=== PATIENT | female | born 1945 | race Caucasian/White ===

== ENCOUNTER 2016-06-13 09:42 | Outpatient (CLI) | payer MEDICARE, MEDICAID ==
[2016-06-13 11:27] LABS: ALT (SGPT) 15 U/L (0-55); AST (SGOT) 14 U/L (5-34); Albumin 4.1 g/dL (3.4-4.8); Alkaline Phosphatase 56 U/L (40-150); Anion Gap 17 mmol/L (10-20); BUN (Urea Nitrogen) 18 mg/dL (9.8-20.1); Bilirubin, Total 0.4 mg/dL (0.2-1.2); Calc. Creatinine Clearance 0 mL/min (70-130); Calcium 9.7 mg/dL (7.8-10.44); Carbon Dioxide 22 mmol/L (23-31); Cardiac Risk 5.2 (Less than 4.5); Chloride 106 mmol/L (98-107); Cholesterol 243 mg/dL (< 200 Desired); Estimated GFR-MDRD 59; Globulin 2.9 g/dL (2.4-3.5); Glucose 113 mg/dL (83-110); HDL Cholesterol 47 mg/dL (>60 Neg Risk); LDL Cholesterol, Calculated 169 mg/dL; Potassium 4.1 mmol/L (3.5-5.1); Sodium 141 mmol/L (136-145); Triglycerides 136 mg/dL (Less than 150)
== END 2016-06-13 09:43 | disposition home or self-care (01) ==
LOC: MADLABBHPM 09:42
PROVIDERS: ATTEND Family Medicine
DX: E03.9 Hypothyroidism, unspecified (principal)
CPT/HCPCS: 80053; 80061; 84443

== ENCOUNTER 2016-08-15 10:43 | Outpatient (CLI) | payer MEDICARE, MEDICAID ==
[2016-08-15 14:22] LABS: Hemoglobin A1c 5.4 % (4.0-6.0)
== END 2016-08-15 10:44 ==
LOC: MADLABBHPM 10:43
PROVIDERS: ATTEND Family Medicine
DX: E78.5 Hyperlipidemia, unspecified (principal)
CPT/HCPCS: 36415; 83036; 84443

== ENCOUNTER 2017-01-03 09:52 | Outpatient (CLI) | payer MEDICAID, MEDICARE ==
[2017-01-03 10:53] LABS: ALT (SGPT) 18 U/L (8-55); AST (SGOT) 16 U/L (5-34); Albumin 4.1 g/dL (3.4-4.8); Alkaline Phosphatase 57 U/L (40-150); Anion Gap 16 mmol/L (10-20); BUN (Urea Nitrogen) 14 mg/dL (9.8-20.1); Bilirubin, Total 0.3 mg/dL (0.2-1.2); Calc. Creatinine Clearance 0 mL/min (70-130); Calcium 9.6 mg/dL (7.8-10.44); Carbon Dioxide 22 mmol/L (23-31); Cardiac Risk 5.6 (Less than 4.5); Chloride 107 mmol/L (98-107); Cholesterol 239 mg/dl (< 200 Desired); Estimated GFR-MDRD 64; Globulin 3.5 g/dL (2.4-3.5); Glucose 114 mg/dL (83-110); HDL Cholesterol 43 mg/dL (>60 Neg Risk); LDL Cholesterol, Calculated 156 mg/dL; Potassium 3.6 mmol/L (3.5-5.1); Protein, Total 7.6 g/dL (6.0-8.3); Sodium 141 mmol/L (136-145); Triglycerides 200 mg/dL (Less than 150)
== END 2017-01-03 09:53 | disposition home or self-care (01) ==
LOC: MADLABBHPM 09:52
PROVIDERS: ATTEND Family Medicine
DX: E78.5 Hyperlipidemia, unspecified (principal); E03.9 Hypothyroidism, unspecified; I10 Essential (primary) hypertension
CPT/HCPCS: 36415; 80053; 80061; 84443

== ENCOUNTER 2017-09-06 00:46 | Emergency (ER) | payer MEDICARE, OTHER ==
[2017-09-06] MEDS ORDERED: Benzonatate 100 MG CAP ONE (01:59)
[2017-09-06] MEDS ORDERED: cefTRIAXone\\ROCEPHIN 1 GM VIAL ONE (02:00)
--- NOTE | 2017-09-06 07:39 | RAD ---
SINGLE VIEW CHEST: Date: 09/06/17 COMPARISON: 06/22/15. HISTORY: Shortness of breath and left-sided rib pain. FINDINGS: Single view of the chest shows a normal sized cardiomediastinal silhouette. There is no evidence of c onsolidation, mass, or pleural effusion. The bones are unremarkable. IMPRESSION: No evidence of acute cardiopulmonary disease. POS: [facility]
== END 2017-09-06 02:30 | disposition home or self-care (01) ==
LOC: MADERS 00:46
DX: J18.9 Pneumonia, unspecified organism (principal); R09.1 Pleurisy; I10 Essential (primary) hypertension; M48.00 Spinal stenosis, site unspecified
CPT/HCPCS: 71045; 96372; J0696; J1040; J2001

== ENCOUNTER 2017-09-26 11:03 | Outpatient (CLI) | payer MEDICARE, OTHER ==
--- NOTE | 2017-09-26 13:12 | RAD ---
FRONTAL VIEW CHEST: Comparison: 09-06-17 Indication: Pneumonia. FINDINGS: There is interstitial prominence of the lungs without lobar consolidation or effusion. Cardiac silhou ette is stable. No pneumothorax. IMPRESSION: Interstitial prominence of each lung. This could relate to edema versus pneumonitis. Recommend clinic al correlation. As necessary, imaging follow up my be obtained. POS: [facility]
== END 2017-09-26 11:04 | disposition home or self-care (01) ==
LOC: MADLAB 11:03
PROVIDERS: ATTEND Family Medicine
DX: J18.9 Pneumonia, unspecified organism (principal)
CPT/HCPCS: 71046

== ENCOUNTER 2017-09-29 20:34 | Emergency (ER) | payer MEDICARE, OTHER ==
--- NOTE | 2017-09-29 21:32 | RAD ---
UPRIGHT PORTABLE CHEST ONE VIEW: 09/29/17 HISTORY: 71-year-old female with history of dyspnea and shortness of breath. COMPARISON: 09/26/17. FINDINGS: Less than optimal inspiration. Monitor leads overlie the chest. Heart size is within normal limits. N o confluent pneumonia, overt edema or pleural effusion. IMPRESSION: No acute intrathoracic disease. Stable from prior study. POS: [facility]
[2017-09-29 21:36] LABS: #Basophils 0.1 thou/uL (0.0-0.2); #Eosinphils 0.2 thou/uL (0.0-0.7); #Lymphocytes 1.5 thou/uL (1.20-3.40); #Monocytes 0.6 thou/uL (0.11-0.59); #Neutrophils 6.6 thou/uL (1.40-6.50); %Basophils 0.9 % (0.0-1.0); %Eosinophils 2.3 % (0.0-10.0); %Lymphocytes 16.9 % (21.0-51.0); %Monocytes 6.5 % (0.0-10.0); %Neutrophils 73.3 % (42.0-75.0); Hemoglobin 12.3 g/dL (12.0-16.0); Mean Corpuscular HGB CONC 32.4 g/dL (32.0-36.0); Mean Corpuscular Hemoglobin 24.2 pg (27.0-31.0); Mean Corpuscular Volume 74.6 fl (81.0-99.0); Mean Platelet Volume 6.6 fL (7.4-10.4); Platelet Count 282 thou/uL (130-400); RBC Distribution Width 13.6 % (11.5-14.5); Red Blood Cell (RBC) Count 5.08 mill/uL (4.20-5.40)
[2017-09-29 21:39] LABS: Anisocytosis MODERATE=16-30 cells (100X) (0-5/hpf); Microcytosis MODERATE=15-30 cells (100X) (0-5/hpf)
[2017-09-29 21:46] LABS: ALT (SGPT) 14 U/L (8-55); AST (SGOT) 15 U/L (5-34); Albumin 4.1 g/dL (3.4-4.8); Alkaline Phosphatase 71 U/L (40-150); Anion Gap 19 mmol/L (10-20); BUN (Urea Nitrogen) 23 mg/dL (9.8-20.1); Bilirubin, Total 0.5 mg/dL (0.2-1.2); CK (CPK) 77 U/L (29-168); Calc. Creatinine Clearance 0 mL/min (70-130); Calcium 9.3 mg/dL (7.8-10.44); Carbon Dioxide 18 mmol/L (23-31); Chloride 105 mmol/L (98-107); Estimated GFR-MDRD 56; Globulin 3.5 g/dL (2.4-3.5); Glucose 95 mg/dL (83-110); Potassium 3.6 mmol/L (3.5-5.1); Protein, Total 7.6 g/dL (6.0-8.3); Sodium 138 mmol/L (136-145)
[2017-09-29 21:52] LABS: CKMB 1.4 ng/mL (0-6.6); Troponin I Less than 0.010 ng/mL (< 0.028)
[2017-09-29] MEDS ORDERED: Ondansetron ODT 4 MG TAB ONE (22:31)
[2017-09-29] MEDS ORDERED: Morphine 4 MG/ML VIAL ONE (22:31)
[2017-09-29] MEDS ORDERED: methylPREDNISolone Sod Succ/PF 125 MG/2 ML VIAL ONE (22:48)
[2017-09-29] MEDS ORDERED: Dexamethasone 10 MG/ML VIAL ONE (22:48)
[2017-09-29] MEDS ORDERED: HYDROcodone/Acetaminophen 10/325 mg Tablet ONE (22:57)
== END 2017-09-29 23:04 | disposition home or self-care (01) ==
LOC: MADERS 20:34
DX: R07.81 Pleurodynia (principal); I10 Essential (primary) hypertension; Z79.899 Other long term (current) drug therapy; Z79.82 Long term (current) use of aspirin
CPT/HCPCS: 36415; 71045; 80053; 82550; 82553; 83605; 83880; 84484; 85025; 87040; 93005; 94760; 96374; 96375; J1100; J2270; J2930; Q0162

== ENCOUNTER 2018-02-01 20:40 | Emergency (ER) | payer MEDICARE, MEDICAID ==
[2018-02-01] MEDS ORDERED: Lorazepam 2 MG/ML VIAL ONE (21:02)
--- NOTE | 2018-02-01 21:18 | RAD ---
CHEST ONE VIEW: 02/01/18 HISTORY: Dyspnea. COMPARISON: 01/09/18. FINDINGS: Slight elongation of the aorta. Normal cardiac silhouette. Pulmonary vessels are within normal limits . Patchy interstitial opacities. No masses or consolidation. No pneumothorax or osseous abnormalities . IMPRESSION: Patchy interstitial opacities. Correlate for edema or infiltrate. POS: [facility]
[2018-02-01 21:23] LABS: #Basophils 0.1 thou/uL (0.0-0.2); #Eosinphils 0.2 thou/uL (0.0-0.7); #Lymphocytes 1.3 thou/uL (1.20-3.40); #Monocytes 0.5 thou/uL (0.11-0.59); #Neutrophils 5.4 thou/uL (1.40-6.50); %Basophils 1.5 % (0.0-1.0); %Eosinophils 3.3 % (0.0-10.0); %Lymphocytes 17.4 % (21.0-51.0); %Monocytes 6.9 % (0.0-10.0); Anisocytosis SLIGHT = 6-15 cells (100X) (0-5/hpf); MDiff Complete? YES; Mean Corpuscular HGB CONC 31.9 g/dL (32.0-36.0); Mean Corpuscular Hemoglobin 24.8 pg (27.0-31.0); Mean Corpuscular Volume 77.6 fL (78.0-98.0); Mean Platelet Volume 7.5 fL (7.4-10.4); Microcytosis SLIGHT = 6-15 cells (100X) (0-5/hpf); PLT Morphology Comment Appears Adequate; Platelet Count 275 thou/uL (130-400); Poikilocytosis SLIGHT = 6-15 cells (100X) (0-5/hpf); RBC Distribution Width 13.7 % (11.5-14.5); RBC Morphology Abnormal; Red Blood Cell (RBC) Count 4.86 mill/uL (4.20-5.40); White Blood Cell (WBC) Count 7.6 thou/uL (4.8-10.8)
[2018-02-01 21:28] LABS: ALT (SGPT) 17 U/L (8-55); AST (SGOT) 19 U/L (5-34); Albumin 4.3 g/dL (3.4-4.8); Alkaline Phosphatase 63 U/L (40-150); Anion Gap 15 mmol/L (10-20); BUN (Urea Nitrogen) 18 mg/dL (9.8-20.1); Bilirubin, Total 0.2 mg/dL (0.2-1.2); Calc. Creatinine Clearance 0 mL/min (70-130); Calcium 9.3 mg/dL (7.8-10.44); Carbon Dioxide 20 mmol/L (23-31); Chloride 108 mmol/L (98-107); Estimated GFR-MDRD 62; Globulin 2.8 g/dL (2.4-3.5); Glucose 111 mg/dL (83-110); Potassium 3.9 mmol/L (3.5-5.1); Protein, Total 7.1 g/dL (6.0-8.3); Sodium 139 mmol/L (136-145)
== END 2018-02-01 22:45 | disposition short-term general hospital (02) ==
LOC: MADERS 20:40
DX: I21.4 Non-ST elevation (NSTEMI) myocardial infarction (principal); E03.9 Hypothyroidism, unspecified; Z86.73 Personal history of transient ischemic attack (TIA), and cerebral infarction without residual deficits; F41.9 Anxiety disorder, unspecified; F32.9 Major depressive disorder, single episode, unspecified; Z87.891 Personal history of nicotine dependence; Z79.82 Long term (current) use of aspirin; Z79.899 Other long term (current) drug therapy
CPT/HCPCS: 36415; 71045; 80053; 83880; 84484; 85025; 93005; 96374; J2060

== ENCOUNTER 2018-04-25 11:16 | Outpatient (CLI) | payer MEDICARE, MEDICAID ==
[2018-04-25 11:32] LABS: Anion Gap 14 mmol/L (10-20); BUN (Urea Nitrogen) 13 mg/dL (9.8-20.1); Calc. Creatinine Clearance 0 mL/min (70-130); Calcium 9.2 mg/dL (7.8-10.44); Carbon Dioxide 22 mmol/L (23-31); Chloride 107 mmol/L (98-107); Estimated GFR-MDRD 67; Glucose 117 mg/dL (83-110); Potassium 4.1 mmol/L (3.5-5.1); Sodium 139 mmol/L (136-145)
[2018-04-25 12:16] LABS: #Basophils 0.1 thou/uL (0.0-0.2); #Eosinphils 0.3 thou/uL (0.0-0.7); #Lymphocytes 1.2 thou/uL (1.20-3.40); #Monocytes 0.6 thou/uL (0.11-0.59); #Neutrophils 5.4 thou/uL (1.40-6.50); %Basophils 1.2 % (0.0-1.0); %Eosinophils 4.5 % (0.0-10.0); %Lymphocytes 15.2 % (21.0-51.0); %Monocytes 7.5 % (0.0-10.0); %Neutrophils 71.6 % (42.0-75.0); Hemoglobin 11.7 g/dL (12.0-16.0); Mean Corpuscular HGB CONC 30.5 g/dL (32.0-36.0); Mean Corpuscular Hemoglobin 24.5 pg (27.0-31.0); Mean Corpuscular Volume 80.1 fL (78.0-98.0); Mean Platelet Volume 6.8 fL (7.4-10.4); Platelet Count 301 thou/uL (130-400); RBC Distribution Width 14.4 % (11.5-14.5); Red Blood Cell (RBC) Count 4.78 mill/uL (4.20-5.40); White Blood Cell (WBC) Count 7.6 thou/uL (4.8-10.8)
[2018-04-25 12:17] LABS: MDiff Complete? YES; Polychromasia SLIGHT = 2-3 cells (100X) (0-2/hpf)
== END 2018-04-25 11:17 | disposition home or self-care (01) ==
LOC: MADLAB 11:16
PROVIDERS: ATTEND Thoracic Surgery (Cardiothoracic Vascular Surgery)
DX: I25.10 Atherosclerotic heart disease of native coronary artery without angina pectoris (principal)
CPT/HCPCS: 36415; 80048; 85025

== ENCOUNTER 2018-05-03 17:31 | Inpatient (IN) | payer MEDICARE, MEDICAID ==
[2018-05-03 17:44] VITALS: BMI 37.0
[2018-05-03] MEDS ORDERED: Zolpidem Tartrate 5 MG TAB PO PRN (18:13)
[2018-05-03] MEDS ORDERED: Loratadine 10 MG TAB PO PRN (18:13)
[2018-05-03] MEDS ORDERED: Senokot S 8.6-50 MG TAB PO PRN (18:18)
[2018-05-03] MEDS: HYDROcodone/Acetaminophen 5/325 mg Tablet PO PRN (19:21)
[2018-05-03] MEDS ORDERED: traZODone HCl 50 MG TAB PO SCH (21:00)
[2018-05-04] MEDS: HYDROcodone/Acetaminophen 5/325 mg Tablet PO PRN ×3 (00:52→21:07)
[2018-05-04] MEDS: Levothyroxine Sodium 75 MCG TAB PO SCH (05:41)
[2018-05-04] MEDS ORDERED: Lantiseptic Ointment 130 GM JAR TOP PRN (06:12)
[2018-05-04] MEDS: Carvedilol 6.25 MG TAB PO SCH ×2 (07:40→16:53)
[2018-05-04] MEDS: Potassium Chloride 20 MEQ TAB PO SCH ×2 (07:40→16:53)
[2018-05-04] MEDS: Aspirin 325 mg Enteric Coated Tablet PO SCH (08:11)
[2018-05-04] MEDS: Amiodarone 200 MG TAB PO SCH (08:11)
[2018-05-04] MEDS: Polyethylene Glycol 3350 17 GM Packet PO SCH (08:11)
[2018-05-04] MEDS: Furosemide 40 MG TAB PO SCH ×2 (08:11→15:17)
--- NOTE | 2018-05-04 13:00 | HP ---
PRIMARY CARE PHYSICIAN: Charlotte Saeed MD. ATTENDING PHYSICIAN: Charlotte Saeed MD. CARDIOVASCULAR PHYSICIAN: Bryan Josue MD. CLIENT SERVICES ANALYST: Troy Lo MD. Andrea Cortez MD. REASON FOR ADMISSION: Skilled rehab in [facility] posthospitalization. HISTORY OF PRESENT ILLNESS AND HOSPITAL COURSE: Ms. Quesada is a 72-year-old female with history of hypertension, dyslipidemia, and history of severe aortic stenosis. She underwent a successful aortic valve replacement by Dr. Bryan Josue on 04/26/2018, at [facility]. She was admitted on 04/26/2018, by Dr. Bryan Josue for elective procedure. The patient has done well postoperatively. Postoperative course complications include a brisk bout of SVT, which was controlled with amiodarone drip. She also had an acute severe anemia , requiring blood transfusions. The patient was then subsequently changed to oral amiodarone prior to discharge and did well.Her most recent hemoglobin was 10.4 on 04/30/18. At the time of discharge, she is ambulatory, tolerating regular diet, having good bowel movement and bladder function. Her incisions are reported to be clean and dry without evidence of infection. . The patient reports that she remains generally weak and deconditioned secondary to recent surgical procedure. She is deemed to benefit from skilled rehab prior to going back to the home environment, thus transferred to [facility]. Upon admission, the patient reports that she feels fine. She reports having intermittent anterior chest wall pain, which is triggered by certain movements. She has had one episode again today after she got out of the ambulance and transferred to her room. She also reports that she is on stool softener to avoid constipation as she easily gets bloated and constipated and does not want to eort extra effort to strain heavily.The patient reports that she uses Ambien while in the hospital for sleeping. She also mentions that she does not want to discontinue her Celexa at all as it helps her overall moods and anxiety. Upon review of her records, we found out that the Celexa was not given at all while in the hospital. Other medications changes aside from the amiodarone, include Coreg, as an alternative for her home med of Atenolol. Aspirin was increased from 81 mg home medication to 325 mg p.o. daily. Amlodipine was likewise withheld secondary to episodes of bradycardia post surgery. At this point,the patient's heart rate and blood pressure are well controlled. MEDICATIONS: 1. Levothyroxine 75 mcg q.a.m. 2. Amiodarone 200 mg p.o. daily for 2 months. 3. Aspirin 325 mg p.o. daily. 4. Coreg 6.25 mg p.o. b.i.d. 5. Lasix 40 mg b.i.d. 6. Potassium 20 mEq p.o. daily. 7. [place] 5/325 mg 1 to 2 tablets q.6 hours p.r.n. PAST MEDICAL HISTORY: Hypertension; dyslipidemia; anxiety; depression; aortic stenosis, status post AVR and bypass surgery; chronic back pain; chronic visual abnormality secondary to macular degeneration; hypothyroidism; history of prior TIA in 2017; and peripheral neuropathy. Echocardiogram on 02/03/2018, ejection fraction 60% to 65%. Mildly dilated left atrium. Left ventricular size is normal. Mild concentric left ventricular hypertrophy. Impaired relaxation compatible with diastolic dysfunction. Aortic valve leaflets are thickened. [id number] aortic stenosis and mild tricuspid regurgitation. PAST SURGICAL HISTORY: Hysterectomy, tonsillectomy, and bilateral hip replacement. FAMILY HISTORY: Mother of Parkinson's. Father was killed in [place] Explosion when she was just a small child. She has 2 brothers with heart disease; one has valvular, the other one has coronary artery disease. SOCIAL HISTORY: The patient is . She has 2 adult sons; one has problem with drugs and alcohol and has been in alf numerous times. She denies smoking, drinking, or abuse of illicit drug use. She is DNR and states that brother Keith and her son Waqas would be her surrogate decision makers. ALLERGIES: INCLUDE: 1. XANAX. 2. CYMBALTA. 3. GABAPENTIN. 4. PAXIL. 5. LYRICA. 6. ZOLOFT. REVIEW OF SYSTEMS: GENERAL: Denies fever, chills, or loss of appetite. Denies fatigue and general weakness. HEENT: Reports chronic burry/abnormal vision. No acute loss of vision. No acute hearing changes. No cold symptoms. RESPIRATORY: No cough, shortness of breath, pain with breathing, sputum production, or blood in sputum. CARDIAC: Denies chest heaviness, pain with breathing, orthopnea, dyspnea on exertion, or cyanosis. GI: No nausea, vomiting, abdominal pain, or diarrhea, no rectal bleeding, black or tarry stools, incontinence. Reports intermittent constipation. . GENITOURINARY: No dysuria, hematuria, frequency, or urgency. Continent to bladder. MUSCULOSKELETAL: Reports chronic low back /hip pain with radiculopathy and unsteady gait. PSYCHIATRIC: Reports depressive symptoms, anxiety, and insomnia. Denies hallucinations. Denies suicidal thoughts, ideations, or plans. SKIN: Reports some redness on the buttocks. Otherwise, no other lesions, ulcers, or pruritis. PHYSICAL EXAMINATION: VITAL SIGNS: Blood pressure 131/63, temperature 98.6, pulse rate 79, respirations 20, O2 saturations 97%. Height 5 feet 2 inches. Weight 202 pounds 11 ounces. GENERAL: The patient is awake, alert, and oriented x3. Generally weak looking, elderly, comfortable on exam, not in acute distress. HEENT: Normocephalic and atraumatic. PERRL. Intact EOM. Anicteric sclerae. Oral mucosa is moist. NECK: Supple. No lymphadenopathy. No JVD. CHEST: Normal excursion. Clear to auscultation bilaterally. CARDIAC: RRR. Normal S1 and S2. ABDOMEN: Soft, obese, and nondistended. Normoactive bowel sounds. Nontender. EXTREMITIES: Trace bilateral bipedal nonpitting edema. Negative Homans. Dorsalis pedis 2+ bilaterally. PSYCHIATRIC: Appears calm with appropriate demeanor and affect. SKIN: Intact erythematous sacrum, blanchable. Postoperative site on the anterior chest is dry and intact. Wound edges are well coapted. Mild tenderness to touch ; No dehiscence. No exudates. No drainage. No surrounding erythema. No swelling. LABORATORY DATA: Latest lab in [facility], 04/30/2018: WBC 9.2, hemoglobin 10.4, hematocrit 31, platelets 193. Sodium 135, potassium 3.2, chloride 93, BUN 21, creatinine 0.61, eGFR 61, calcium 9.1. TSH 2.7. Albumin 3.4. Magnesium 2.1. LFTs within normal limits. PT 17.2, INR 1.4. ASSESSMENT AND PLAN: 1. Deconditioning. 2. Severe aortic stenosis/coronary artery disease, status post aortic valve replacement 3. CAD, s/p coronary artery bypass grafting x4. 4. Acute severe blood loss anemia, requiring blood transfusion. 5. Hypokalemia, mild. Likely diuretic-induced. 6. History of arrhythmia, status post supraventricular tachycardia and bradycardia, now rate controlled. 7.Diastolic dysfunction with ejection fraction of 60% to 65% as of January 2018, echocardiogram in [facility] 8. Depression and anxiety. 9. Insomnia. 10. Hypothyroidism. 11. Chronic low back pain. 12. General weakness. 13. Unsteady gait The patient is admitted to [facility] for purposes of skilled rehab post hospitalization in order to to gain modified independence with her gait and mobility and modified independence with self-care and activities of daily living skills prior to returning home. The patient's pain will be managed with p.r.n. narcotic as well as constipation management. We will continue all current medications as per list. We have a lengthy discussion with regard to her anxiety/antidepressive and insomnia medications. It was explained to the patient that her Celexa was for some reason withheld during her recent hospitalization, so she has not been using the SSRI for over a week. Discussed the drug interactions between the Celexa and her amiodarone, causing increased risks to her heart. Patient reports given her current heart condition, would rather not received the medication. Discussed treatment options. Given the fact that she also has issues with insomnia, and the limitation of short term use of ambien, patient may benefit from Trazodone to cover for both. The patient agreed to a trial of trazodone. We will order. We will continue to monitor the patient for any medical comorbidities that may interfere with rehab progress. We will continue to monitor her blood pressure. We will consider re-initiating her calcium channel freddie (Norvasc 10 mg p.o. q.a.m.) from home medications if Blood pressure in not at goal as long as the heart rate is controlled. ESTIMATED LENGTH OF STAY: 2 to 3 weeks. CODE STATUS: The patient reports do not resuscitate, which is consistent with other previous hospitalization's resuscitation status. This was discussed in the presence of her 2 surrogate decision makers, her son Waqas and her brother Keith Simon. Family representatives were both into agreement to the patient's wishes. We discussed the plan of care with the patient in the presence of the family today. There were all encouraged to ask questions, and their questions were all answered to their satisfaction. We will continue to monitor the patient's progress and to coordinate with the family for any changes in her care or status. DISPOSITION: Home and possible outpatient cardiac rehab at [facility] per [facility] recommendations. Job ID: [id number] MTDD
--- NOTE | 2018-05-04 15:04 | HP ---
Of note, I am re-dictating this admitting history as Medical Records could not find my previous dictation for this patient. PRIMARY CARE PHYSICIAN: Dr. Saeed. ATTENDING PHYSICIAN: Dr. Saeed. CARDIOVASCULAR PHYSICIAN: Dr. Josue. CARDIOLOGISTS: Dr. Cortez/Dr. Lo. REASON FOR ADMISSION: Skilled rehab in [facility] after recent hospitalization for cardiac procedure/surgery. HISTORY OF PRESENT ILLNESS AND HOSPITAL COURSE: Ms. Quesada is a 72-year-old female with significant history of hypertension, dyslipidemia, CAD, and diastolic dysfunction. She also has a history of severe aortic stenosis and she successfully underwent an elective procedure for aortic valve replacement, was done by Dr. Bryan Josue on 04/26/2018. She also had an underlying 3-vessel coronary artery disease and underwent bypass surgery x4. Post-surgical complications include acute blood loss anemia, for which the patient received 2 units of packed RBC. Her baseline hemoglobin of 8.3 with a hematocrit of 25.8 on 04/26/2018, went up to 10/30.4 accordingly. Later on, on 04/29/2018, the patient's hemoglobin went down to 7.4 with a hematocrit of 22.5, thus transfused. Post-transfusion, hemoglobin was 10.4 and hematocrit of 31 on 04/30/2018. The patient also had a brisk bout of SVT and bradycardia, which was controlled with amiodarone drip. The patient was discharged on amiodarone per RN. Otherwise, the remainder of her hospital stay was reported to be unremarkable. At the time of discharge, we were told that she was ambulatory, tolerating regular diet, and having good bowel and bladder function. Her incision sites are clean and dry without evidence of infection. The patient was sent with oral narcotic for pain management. Her beta-freddie was changed from atenolol to Coreg, and her home medication of Norvasc was withheld secondary to bradycardia. There was a note that Norvasc may possibly be reinitiated by PCP, if deemed necessary. The patient remains generally weak and deconditioned secondary to recent heart procedure. Thus, she was transferred to [facility] for strengthening exercises prior to going back to the home environment. The patient is also a good candidate for outpatient cardiac rehab per [facility] notes. On admission, the patient reports that she is doing fine except that she remains generally weak. She also reports intermittent anterior chest wall pain that is notable with movements. Currently, complaining of anterior right chest pain that was noted upon getting up or getting out of the EMS. The patient also reported apparent concerns of her home medications including the Celexa and Ambien. She has a history of chronic depressive symptoms/anxiety and she is allergic to several psych medications except for the Celexa that works best for her. She states that she really is wanting to continue the medicine and does not want to miss it. Upon review of her medications from the [facility] from [facility], it was found out that the patient's Celexa was withheld during her recent hospitalization for unknown reason. She was also started on low-dose of Ambien for sleeping issues. The patient reports that Ambien really works for her and is wanting to continue. The patient also reports that she also needs stool softeners as she is having a hard time with her bowel movements lately and is unable to strain much due to her recent procedure. No other issues at this point. PAST MEDICAL HISTORY: Hypertension, dyslipidemia, depression, anxiety, chronic low back pain/hip pain, peripheral neuropathy, macular degeneration, hypothyroidism, unsteady gait. Latest echocardiogram on 02/04/2016, EF of 60% to 65%. Mildly dilated left atrium. Left ventricular size is normal. Mild concentric left ventricular hypertrophy. Impaired relaxation compatible with diastolic dysfunction. Aortic valve leaflets are thickened. [id number] aortic stenosis is present. Mild tricuspid regurgitation. PAST SURGICAL HISTORY: Hysterectomy, tonsillectomy, and bilateral hip replacements. She reports something went wrong with the right hip procedure and she has had chronic problems related to that. FAMILY HISTORY: Mother of Parkinson's. Father was killed in [place] explosion when she was just a small child. She has 2 brothers with heart disease; one has valvular, the other one has coronary artery disease. ALLERGIES: 1. XANAX. 2. CYMBALTA. 3. GABAPENTIN. 4. PAXIL. 5. LYRICA. 6. ZOLOFT. SOCIAL HISTORY: The patient is . She has 2 adult sons; one has problem with drugs and alcohol and has been in custodial numerous times. She denies smoking, drinking, or illicit drug use. She is DNR and states that brother, Keith and her son, Waqas, would be her surrogate decision makers. CURRENT MEDICATIONS: 1. Levothyroxine 75 mcg p.o. q.a.m. 2. Amiodarone 200 mg p.o. daily for 2 months. 3. Aspirin 325 mg p.o. daily. 4. Coreg 6.25 mg p.o. b.i.d. 5. Lasix 40 mg b.i.d. 6. Potassium 20 mEq p.o. daily. 7. [place] 5/325 mg 1 to 2 q.6 hours p.r.n. for pain. 8. Pending Norvasc 10 mg q.a.m. 9. Celexa 40 mg p.o. q.a.m., on hold. REVIEW OF SYSTEMS: GENERAL: Denies fever, chills, or loss of appetite. Reports general weakness and fatigue. No significant weight loss. HEENT: Reports long-term issues with blurry vision. No acute visual changes nor hearing changes. No cold symptoms. RESPIRATORY: No cough, sputum production, bloody sputum, pain with breathing, shortness of breath, or wheezing. CARDIAC: No chest heaviness, orthopnea, dyspnea on exertion, or cyanosis. GI: No nausea, vomiting, abdominal pain, or diarrhea. Reports constipation. No rectal bleeding. GENITOURINARY: No dysuria, hematuria, frequency, urgency, or incontinence. MUSCULOSKELETAL: Reports chronic joint pain, hip pain, back pain, and stiffness of joints. No joint swelling or erythema. SKIN: No rashes. No lesions or any nonhealing ulcers. NEUROLOGIC: No new motor or sensory losses. No syncopal episodes. No tremors, tics, or seizure activities. PSYCHIATRIC: Reports depressive symptoms, anxiety, and insomnia. Denies hallucinations, suicidal thoughts, ideations, or plans. PHYSICAL EXAMINATION: VITAL SIGNS: Blood pressure 131/63, temperature 98.6, pulse rate 79, respirations 20, O2 saturations 97% on room air. Weight 202 pounds and 11 ounces. Height 5 feet 2 inches. GENERAL: The patient is awake, alert, and oriented x3. Generally weak looking, fatigue, elderly, comfortable on exam, not in acute distress. Family is at bedside during examination. HEENT: Normocephalic and atraumatic. PERRLA. Intact EOM. Anicteric sclerae. Oral mucosa is moist. NECK: Supple. No LAD/JVD. CHEST: Normal excursion and nonlabored breathing. LUNGS: Clear to auscultation bilaterally. No rales, no wheezes, no crackles. CARDIAC: RRR. Normal S1 and S2. ABDOMEN: Obese, soft. Normoactive bowel sounds. Nondistended and nontender. No rebound. No guarding. Negative CVA tenderness bilaterally. EXTREMITIES: Trace nonpitting bilateral leg bipedal edema. No cyanosis. Dorsalis pedis 2+ bilaterally. NEUROLOGIC: Nonfocal. DTRs 2+. Alert and oriented. Gait, unsteady. PSYCHIATRIC: Appears anxious with her medications. Otherwise, appropriate. Socially interactive. ASSESSMENT AND PLAN: 1. Deconditioning. 2. General weakness. 3. Severe aortic stenosis, status post aortic valve replacement on 04/26/2018. 4. Coronary artery disease, status post coronary artery bypass grafting x4 on 04/26/2018. 5. Acute blood loss anemia, severe, requiring blood transfusions, asymptomatic. 6. Hypertension, dyslipidemia, hypothyroidism, depression, anxiety, insomnia, unsteady gait. The patient is admitted to [facility] for purposes of skilled rehab. PT consult to gain modified independence with mobility and household ambulation with a rolling walker, weightbearing as tolerated. OT consult to gain modified independence with self-care, ADL skills. The patient's pain will be managed with p.r.n. narcotic as well as constipation management with stool softeners. We will continue all current medications except for the home medications of Norvasc and Celexa. Lengthy discussion with the patient in the presence of her family that Celexa was withheld during her recent hospitalization likely secondary to drug interactions with amiodarone. Treatment options were discussed at length. The patient agrees to a trial of trazodone that will cover both depression, anxiety, and insomnia. We will continue low-dose Ambien as needed. She was also reminded that long-term use of Ambien is not a good recommendation, so we may taper off during her rehab stay. The patient concurs with above and will notify us, if she developed intolerance to the medications. DVT prophylaxis with SCD. ESTIMATED LENGTH OF STAY: 2 to 3 weeks. CODE STATUS: The patient reports do not attempt resuscitation. DNR status was verbalized and discussed in the presence of her two surrogate decision makers, son Waqas and Keith Simon, the patient's brother, who were all into agreement with the patient's wishes. DISPOSITION: Home. Further recommendations depending on the hospital course. Job ID: [id number]
[2018-05-05] MEDS: HYDROcodone/Acetaminophen 5/325 mg Tablet PO PRN ×4 (05:44→20:44)
[2018-05-05] MEDS: Levothyroxine Sodium 75 MCG TAB PO SCH (05:44)
[2018-05-05] MEDS: Polyethylene Glycol 3350 17 GM Packet PO SCH (08:26)
[2018-05-05] MEDS: Carvedilol 6.25 MG TAB PO SCH ×2 (08:26→17:23)
[2018-05-05] MEDS: Furosemide 40 MG TAB PO SCH ×2 (08:27→14:35)
[2018-05-05] MEDS: Amiodarone 200 MG TAB PO SCH (08:27)
[2018-05-05] MEDS: Aspirin 325 mg Enteric Coated Tablet PO SCH (08:27)
[2018-05-05] MEDS: Potassium Chloride 10 MEQ TAB PO SCH ×2 (08:27→17:23)
[2018-05-06] MEDS: HYDROcodone/Acetaminophen 5/325 mg Tablet PO PRN ×3 (02:37→20:21)
[2018-05-06] MEDS: Levothyroxine Sodium 75 MCG TAB PO SCH (05:39)
[2018-05-06] MEDS ORDERED: Milk Of Magnesia 30 ML UDCUP PO PRN (08:32)
[2018-05-06] MEDS: Potassium Chloride 10 MEQ TAB PO SCH ×2 (08:59→16:51)
[2018-05-06] MEDS: Aspirin 325 mg Enteric Coated Tablet PO SCH (08:59)
[2018-05-06] MEDS: Furosemide 40 MG TAB PO SCH ×2 (08:59→14:32)
[2018-05-06] MEDS: Carvedilol 6.25 MG TAB PO SCH ×2 (08:59→16:52)
[2018-05-06] MEDS: Amiodarone 200 MG TAB PO SCH (08:59)
[2018-05-06] MEDS: Polyethylene Glycol 3350 17 GM Packet PO SCH (13:02)
[2018-05-06] MEDS ORDERED: Bisacodyl 10 MG SUPP PR SCH (18:00)
[2018-05-07] MEDS: Levothyroxine Sodium 75 MCG TAB PO SCH (05:43)
[2018-05-07] MEDS: Potassium Chloride 10 MEQ TAB PO SCH ×2 (07:54→17:08)
[2018-05-07] MEDS: Carvedilol 6.25 MG TAB PO SCH ×2 (07:54→17:08)
[2018-05-07] MEDS: Polyethylene Glycol 3350 17 GM Packet PO SCH (08:07)
[2018-05-07] MEDS: Furosemide 40 MG TAB PO SCH ×2 (08:08→14:33)
[2018-05-07] MEDS: Amiodarone 200 MG TAB PO SCH (08:08)
[2018-05-07] MEDS: Aspirin 325 mg Enteric Coated Tablet PO SCH (08:08)
[2018-05-07] MEDS: HYDROcodone/Acetaminophen 5/325 mg Tablet PO PRN ×3 (11:46→17:08)
[2018-05-08] MEDS: Levothyroxine Sodium 75 MCG TAB PO SCH (05:55)
[2018-05-08] MEDS: Carvedilol 6.25 MG TAB PO SCH ×2 (07:34→17:13)
[2018-05-08] MEDS: Potassium Chloride 10 MEQ TAB PO SCH ×2 (07:34→17:13)
[2018-05-08] MEDS: HYDROcodone/Acetaminophen 5/325 mg Tablet PO PRN ×3 (07:40→20:59)
[2018-05-08] MEDS: Polyethylene Glycol 3350 17 GM Packet PO SCH (08:20)
[2018-05-08] MEDS: Amiodarone 200 MG TAB PO SCH (08:20)
[2018-05-08] MEDS: Aspirin 325 mg Enteric Coated Tablet PO SCH (08:20)
[2018-05-08] MEDS: Furosemide 40 MG TAB PO SCH ×2 (08:20→14:51)
[2018-05-09] MEDS ORDERED: Nitroglycerin 0.4 MG TAB (25 Tab Bottle) ONE (02:03)
[2018-05-09] MEDS ORDERED: Nitroglycerin 0.4 MG TAB (25 Tab Bottle) SL PRN (02:05)
[2018-05-09 02:35] LABS: #Basophils 0.2 thou/uL (0.0-0.2); #Eosinphils 0.5 thou/uL (0.0-0.7); #Lymphocytes 1.7 thou/uL (1.20-3.40); #Monocytes 0.8 thou/uL (0.11-0.59); #Neutrophils 8.4 thou/uL (1.40-6.50); %Basophils 1.5 % (0.0-1.0); %Lymphocytes 14.8 % (21.0-51.0); %Monocytes 6.7 % (0.0-10.0); %Neutrophils 72.9 % (42.0-75.0); Hemoglobin 10.7 g/dL (12.0-16.0); Mean Corpuscular HGB CONC 31.9 g/dL (32.0-36.0); Mean Corpuscular Hemoglobin 26.2 pg (27.0-31.0); Mean Corpuscular Volume 82.2 fL (78.0-98.0); Mean Platelet Volume 5.9 fL (7.4-10.4); Platelet Count 358 thou/uL (130-400); RBC Distribution Width 15.1 % (11.5-14.5); Red Blood Cell (RBC) Count 4.09 mill/uL (4.20-5.40); White Blood Cell (WBC) Count 11.6 thou/uL (4.8-10.8)
[2018-05-09 02:47] LABS: ALT (SGPT) 10 U/L (8-55); AST (SGOT) 12 U/L (5-34); Albumin 3.7 g/dL (3.4-4.8); Alkaline Phosphatase 75 U/L (40-150); Anion Gap 17 mmol/L (10-20); BUN (Urea Nitrogen) 26 mg/dL (9.8-20.1); Bilirubin, Total 0.3 mg/dL (0.2-1.2); Calc. Creatinine Clearance 60 mL/min (70-130); Calcium 8.9 mg/dL (7.8-10.44); Carbon Dioxide 25 mmol/L (23-31); Chloride 101 mmol/L (98-107); Estimated GFR-MDRD 45; Globulin 2.6 g/dL (2.4-3.5); Glucose 107 mg/dL (83-110); Potassium 4.2 mmol/L (3.5-5.1); Protein, Total 6.3 g/dL (6.0-8.3); Sodium 139 mmol/L (136-145)
[2018-05-09 03:20] LABS: CKMB 1.4 ng/mL (0-6.6)
[2018-05-09 03:54] VITALS: BP 105/51; TEMP 97.8
--- NOTE | 2018-05-10 08:26 | DIS ---
DATE OF ADMISSION: 05/03/2018 DATE OF DISCHARGE: 05/09/2018 ATTENDING/PRIMARY CARE PHYSICIAN: Dr. Saeed. CUTTER GRIND TOOL TECHNICIAN: Dr. Cortez. CARDIOVASCULAR PHYSICIAN: Dr. Bryan Josue. REASON FOR ADMISSION: Skilled rehab in [facility], status post cardiac procedure. ADMITTING DIAGNOSES: 1. Deconditioning. 2. Severe aortic stenosis, status post aortic valve replacement on 04/26/2018. 3. Coronary artery disease, status post coronary artery bypass grafting x4 on . 4. Acute severe blood loss anemia requiring blood transfusion, stable. 5. Hypokalemia, mild, diuretic induced, stable. 6. History of arrhythmia, status post supraventricular tachycardia/bradycardia postoperatively. 7. Diastolic dysfunction with ejection fraction of 60% to 65% on echo in January 2018 at [facility]. 8. Depression, anxiety, insomnia, hypothyroidism, chronic low back pain, general weakness, and unsteady gait. FINAL DIAGNOSES: 1. Acute chest pain. 2. Paroxysmal atrial fibrillation. 3. Coronary artery disease, status post coronary artery bypass grafting x4 on . 4. Severe aortic stenosis, status post aortic valve replacement on 04/26/2018. 5. Acute severe blood loss anemia, requiring blood transfusion. 6. Diastolic dysfunction with ejection fraction of 60% to 65% as of January 2018 echocardiogram at [facility]. 7. Acute severe blood loss anemia requiring blood transfusion, stable. 8. Hypokalemia, mild, stable. 9. Depression, anxiety, insomnia, hypothyroidism, chronic low back pain, general weakness, and unsteady gait. MEDICATIONS: 1. Nitroglycerin 0.5 sublingual p.r.n. for chest pain. 2. Amiodarone 200 mg p.o. daily. 3. Aspirin 325 mg p.o. daily. 4. Coreg 6.25 mg p.o. b.i.d. 5. Furosemide 40 mg b.i.d. 6. Hydrocodone 5/325 mg p.o. 1 to 2 q.4 hours p.r.n. for pain. 7. Lantiseptic p.r.n. 8. Levothyroxine 75 mcg p.o. q.a.m. 9. Loratadine 10 mg p.o. daily p.r.n. 10. Magnesium hydroxide 30 mL p.o. q.12 hours p.r.n. 11. Polyethylene glycol 17 g p.o. daily. 12. Potassium chloride 20 mEq p.o. b.i.d. 13. Sennoside-docusate 1 tab p.o. b.i.d. p.r.n. 14. Zolpidem tartrate 5 mg p.o. at bedtime p.r.n. CODE STATUS: DNAR. DISPOSITION: [facility], direct admit to IMCU/EMU under Dr. Cota as the admitting physician. CONDITION ON DISCHARGE: Hemodynamically stable, but guarded. HISTORY OF PRESENT ILLNESS AND HOSPITAL COURSE: Ms. Simon is a 72-year-old female, who had a recent elective procedure for severe aortic stenosis valve replacement, and CABG x4 on 04/26/2018 that was done by Dr[address] Bryan Josue.Postoperative complications include severe acute anemia from acute blood loss requiring blood transfusions. She also developed arrhythmia postoperatively that requires amiodarone drip. Heart rate improved and she transferred on amiodarone oral. Her latest hemoglobin prior to discharge was at 10.4 with hematocrit of 31 on 04/30/2018. The patient was admitted to [facility] on 05/03/2017. She reported intermittent anterior chest wall pain that was deemed secondary to postop surgical site. She normally responded well with p.r.n. dose of [place]. Pain is usually triggered with movement or during exercises/therapy. During her stay in [place], she had 2 episodes of atrial fibrillation noted. Initial heart palpitations was reported on 05/07/2018 at 115 beats per minute at rest. Heart rate responded very well with vagal maneuvers. The second episode of heart palpitations was reported on pullman car clerk of 05/09/2018, wherein the patient was resting in her chair and she suddenly felt an acute onset of anterior chest pain that is different from her usual anterior chest wall pain. EKG at that time showed AFib at the rate of 80s. The patient was given nitroglycerin sublingual 0.4 mg and reported some improvement of chest pain down to 5/10. The patient does not want to have further dose of nitroglycerin, but requested to be transferred back to [facility]. We contacted transfer center and spoke to Dr. Cota, a hospitalist from [facility] and generously accepted back the patient for tele observation. Vital signs prior to discharge; blood pressure 105/51, temp 97.8, pulse 62 to 80, respirations 18, and O2 sats 95% to 97%. Weight 196 pounds and 3 ounces. Height 5 feet 2. The patient was transferred to [facility] for higher level of care/specialty care. Job ID: [id number] MTDD
== END 2018-05-09 03:00 | disposition short-term general hospital (02) | DRG 949 ==
LOC: MADMS 17:31
PROVIDERS: ADMIT Family Medicine; ATTEND Family Medicine
DX: Z48.812 Encounter for surgical aftercare following surgery on the circulatory system (principal); D62 Acute posthemorrhagic anemia; I48.91 Unspecified atrial fibrillation; R53.81 Other malaise; I25.10 Atherosclerotic heart disease of native coronary artery without angina pectoris; Z66 Do not resuscitate; E87.6 Hypokalemia; T50.2X5A Adverse effect of carbonic-anhydrase inhibitors, benzothiadiazides and other diuretics, initial encounter; F41.8 Other specified anxiety disorders; G47.00 Insomnia, unspecified; E03.9 Hypothyroidism, unspecified; G89.29 Other chronic pain; I10 Essential (primary) hypertension; E78.5 Hyperlipidemia, unspecified; G62.9 Polyneuropathy, unspecified; R07.89 Other chest pain; M54.5 Low back pain; R53.1 Weakness; R26.81 Unsteadiness on feet; Z96.643 Presence of artificial hip joint, bilateral; Z95.4 Presence of other heart-valve replacement; Z95.1 Presence of aortocoronary bypass graft; Z79.82 Long term (current) use of aspirin; Z79.899 Other long term (current) drug therapy; Z86.73 Personal history of transient ischemic attack (TIA), and cerebral infarction without residual deficits; Z90.710 Acquired absence of both cervix and uterus; Z90.89 Acquired absence of other organs; Z88.8 Allergy status to other drugs, medicaments and biological substances
CPT/HCPCS: 80053; 82553; 83880; 84484; 85025

== ENCOUNTER 2018-05-10 15:52 | Inpatient (IN) | payer MEDICARE, MEDICAID ==
[2018-05-10] MEDS ORDERED: Ondansetron ODT 4 MG TAB PO PRN (18:00)
[2018-05-10] MEDS: Carvedilol 6.25 MG TAB PO SCH ×2 (19:49→19:54)
[2018-05-10] MEDS: HYDROcodone/Acetaminophen 5/325 mg Tablet PO PRN (19:55)
[2018-05-10] MEDS: Apixaban 5 MG TAB PO SCH (21:05)
[2018-05-10] MEDS: Amiodarone 200 MG TAB PO SCH (21:05)
[2018-05-10] MEDS: Lorazepam 0.5 MG TAB PO PRN ×2 (21:49→22:14)
[2018-05-11] MEDS ORDERED: Nitroglycerin 0.4 MG TAB (25 Tab Bottle) SL PRN (01:53)
[2018-05-11] MEDS: Amiodarone 200 MG TAB PO SCH ×2 (08:28→20:15)
[2018-05-11] MEDS: Carvedilol 6.25 MG TAB PO SCH ×2 (08:28→17:03)
[2018-05-11] MEDS: Apixaban 5 MG TAB PO SCH ×2 (08:29→20:16)
[2018-05-11] MEDS: Furosemide 40 MG TAB PO SCH ×2 (08:29→14:34)
[2018-05-11] MEDS: Aspirin 325 MG TAB PO SCH (08:29)
[2018-05-11] MEDS: Loratadine 10 MG TAB PO SCH (08:30)
[2018-05-11] MEDS ORDERED: Levothyroxine Sodium 50 MCG TAB PO SCH (09:00)
[2018-05-11] MEDS: HYDROcodone/Acetaminophen 5/325 mg Tablet PO PRN ×2 (11:51→19:39)
--- NOTE | 2018-05-11 15:46 | HP ---
ADMITTING/PRIMARY CARE PHYSICIAN: Dr. Saeed. LADLE HANDLER: Dr. Cortez. CARDIOVASCULAR PHYSICIAN: Dr. Jouse. REASON FOR ADMISSION: To continue skilled rehab in [facility] status post hospitalization (the second time). HISTORY OF PRESENT ILLNESS AND HOSPITAL COURSE: Ms. Quesada is a pleasant 72- year-old female, who just had recent elective procedures for both aortic stenosis valve replacement and CABG x4 on 04/26/2018, at [facility] as performed by Dr. Bryan Josue. Postoperative complications include acute blood loss anemia, severe, requiring blood transfusions. She also had an SVT/bradycardia episode postoperatively that requires amiodarone drip therapy. She was initially sent to [facility] on 05/03/2018, after the patient was deemed stable for skilled rehab. The patient stayed in [facility] until 05/09/2018. She was transferred back to [facility] as the patient developed an acute onset of atrial fibrillation and chest pain that is different from her usual anterior chest wall postoperative pain. The patient was observed in [facility], wherein her cardiac enzymes were reported to be negative.Her EKG at that time was unrevealing for acute changes. Her repeat hemoglobin was 10.5 , platelets 327, and white count of 9.7. Her CMP was unremarkable except for mildly low sodium at 135. She had no pressure or chest pain, and her chest x- ray was normal. No CHF nor infiltrate reported. Cardiac consult was done. At this time, she has had an Echocradiogram that showed her EF was 60% to 65% with some diastolic dysfunction. She was deemed to have pleuritic chest pain. Patient was started on Eliquis in addition to ASA 325 mg po qd. After an overnight unremarkable stay in [facility] telemetry observation, the patient was sent back to [facility] to continue her skilled rehab. Upon return, the patient reports that she is feeling a lot better. She still has intermittent anterior chest wall pain, but not as bad as she had when she was transferred back to [facility]. Medication changes at this time include discontinuation of Ambien as she reports seeing visual hallucinations with it. Also, her citalopram was included at this time for transfer home list. Of note, Citalopram was discontinued during her last recent hospitalization secondary to drug-drug interaction with amiodarone. This was discussed again with the patient today on admission, and she voiced understanding. She reports that she would rather not take it than having some complications with her heart as she is afraid to go back to the hospital again. For the rest of the history, please refer to my recent history on 05/03/2018. REVIEW OF SYSTEMS: GENERAL: Denies fever or chills. Reports fatigue and general weakness. HEENT: No acute visual changes or hearing changes. Reports chronic blurry vision due to her macular degeneration. No cold symptoms. RESPIRATORY: No shortness of breath, cough, sputum production, or bloody sputum. GI: No nausea, vomiting, abdominal pain, or diarrhea. She reports constipation. GENITOURINARY: No dysuria, hematuria, frequency, urgency, or incontinence. MUSCULOSKELETAL: Reports chronic low back pain, intermittent other joint pains. No joint effusion. No erythema. PSYCHIATRIC: Reports depression, anxiety, insomnia, and intermittent hallucinations, drug induced. SKIN: No other skin rashes or lesions aside from postoperative wound that is healing. PHYSICAL EXAMINATION: VITAL SIGNS: On admission, blood pressure 130/60, temperature 97.5, pulse 63, respirations 20, O2 sats 93% on room air, weight 206 pounds and 8 ounces, height is 5 feet and 2 inches. GENERAL: The patient is awake, alert, oriented x3, not in distress, comfortable on exam. No signs of agony. HEENT: Normocephalic, atraumatic. PERRL. Intact EOM. Anicteric sclerae. No oral lesions. Oral mucosa is moist. NECK: Supple. No lymphadenopathy. Flat JVD. CHEST: Normal excursion. Clear to auscultation bilaterally. Nonlabored breathing. LUNGS: Clear to auscultation bilaterally. CARDIAC: Rate controlled. Normal S1 and S2. ABDOMEN: Soft. Normoactive bowel sounds. Nondistended, nontender. No rebound or guarding. Negative CVA tenderness bilaterally. EXTREMITIES: No edema. No cyanosis. SKIN: Postoperative site on the anterior wall is dry, healing in appearance. No exudates. No drainage. No surrounding erythema or edema. Mildly tender to touch. NEUROLOGIC: Nonfocal. Gait, unsteady. DTRs 2+. PSYCHIATRIC: Appears calm with appropriate demeanor and affect. ASSESSMENT AND PLAN: 1. Physical deconditioning, general weakness. 2. Pleuritic chest pain. 3. Aortic valve replacement for severe aortic stenosis, 04/26/2018. 4. Coronary artery disease, status post coronary artery bypass graft, 2017. 5. Hypertension. 6. Paroxysmal atrial fibrillation. 7. Diastolic heart dysfunction. 8. Hypothyroidism. 9. Anxiety/depression/insomnia. The patient is readmitted to [facility] to continue skilled rehab.PT /OT eval and treat. We will continue all current medications as modified per list. We will discontinue citalopram per the patient's request secondary to known drug interactions with amiodarone. We will continue to monitor the patient's anxiety,insomnia.. The patient is currently on Eliquis and aspirin. No further anticoagulation is necessary at this point nor VTE prophylaxis at this point. Further recommendations depending on the hospital course. ESTIMATED LENGTH OF STAY: 2 to 3 weeks. CODE STATUS: The patient again reports DNAR, we will order. Job ID: [id number] MTDD
[2018-05-11] MEDS ORDERED: Citalopram 20 MG TAB PO SCH (21:00)
[2018-05-12] MEDS: Levothyroxine Sodium 50 MCG TAB PO SCH (05:59)
[2018-05-12] MEDS: HYDROcodone/Acetaminophen 5/325 mg Tablet PO PRN ×3 (07:10→19:19)
[2018-05-12] MEDS: Loratadine 10 MG TAB PO SCH (08:30)
[2018-05-12] MEDS: Amiodarone 200 MG TAB PO SCH ×2 (08:30→20:24)
[2018-05-12] MEDS: Furosemide 40 MG TAB PO SCH ×2 (08:30→13:28)
[2018-05-12] MEDS: Carvedilol 6.25 MG TAB PO SCH ×2 (08:30→17:43)
[2018-05-12] MEDS: Apixaban 5 MG TAB PO SCH ×2 (08:30→20:25)
[2018-05-12] MEDS: Aspirin 325 MG TAB PO SCH (08:30)
[2018-05-12] MEDS: Lorazepam 0.5 MG TAB PO PRN (22:35)
[2018-05-13] MEDS: Levothyroxine Sodium 50 MCG TAB PO SCH (06:00)
[2018-05-13] MEDS: Carvedilol 6.25 MG TAB PO SCH ×2 (08:46→17:28)
[2018-05-13] MEDS: Apixaban 5 MG TAB PO SCH ×2 (08:46→20:48)
[2018-05-13] MEDS: Loratadine 10 MG TAB PO SCH (08:47)
[2018-05-13] MEDS: Aspirin 325 MG TAB PO SCH (08:47)
[2018-05-13] MEDS: Amiodarone 200 MG TAB PO SCH ×2 (08:47→20:48)
[2018-05-13] MEDS: Furosemide 40 MG TAB PO SCH ×2 (08:47→13:16)
[2018-05-13] MEDS: HYDROcodone/Acetaminophen 5/325 mg Tablet PO PRN ×2 (13:16→17:59)
[2018-05-13] MEDS ORDERED: Bisacodyl 5 MG TAB PO SCH (21:30)
[2018-05-14] MEDS: Lorazepam 0.5 MG TAB PO PRN (00:47)
[2018-05-14] MEDS: Levothyroxine Sodium 50 MCG TAB PO SCH (05:16)
[2018-05-14] MEDS: Furosemide 40 MG TAB PO SCH ×2 (08:43→14:12)
[2018-05-14] MEDS: Loratadine 10 MG TAB PO SCH (08:43)
[2018-05-14] MEDS: Amiodarone 200 MG TAB PO SCH ×2 (08:43→20:24)
[2018-05-14] MEDS: Apixaban 5 MG TAB PO SCH ×2 (08:43→20:24)
[2018-05-14] MEDS: Aspirin 325 MG TAB PO SCH (08:43)
[2018-05-14] MEDS: Carvedilol 6.25 MG TAB PO SCH ×2 (08:43→16:53)
[2018-05-14] MEDS: Senokot S 8.6-50 MG TAB PO PRN (11:26)
[2018-05-14] MEDS ORDERED: Bisacodyl 10 MG SUPP PR PRN (12:01)
[2018-05-14] MEDS: Acetaminophen 325 MG TAB PO PRN (20:22)
[2018-05-14] MEDS: Polyethylene Glycol 3350 17 GM Packet PO SCH (20:25)
[2018-05-15] MEDS: Lorazepam 0.5 MG TAB PO PRN ×2 (00:11→22:26)
[2018-05-15] MEDS: Acetaminophen 325 MG TAB PO PRN ×3 (00:12→14:43)
[2018-05-15] MEDS: HYDROcodone/Acetaminophen 5/325 mg Tablet PO PRN ×2 (01:21→22:25)
[2018-05-15] MEDS: Levothyroxine Sodium 50 MCG TAB PO SCH (05:56)
[2018-05-15] MEDS: Aspirin 325 MG TAB PO SCH (08:34)
[2018-05-15] MEDS: Furosemide 40 MG TAB PO SCH ×2 (08:35→14:13)
[2018-05-15] MEDS: Carvedilol 6.25 MG TAB PO SCH ×2 (08:35→17:17)
[2018-05-15] MEDS: Amiodarone 200 MG TAB PO SCH ×2 (08:35→20:12)
[2018-05-15] MEDS: Loratadine 10 MG TAB PO SCH (08:35)
[2018-05-15] MEDS: Apixaban 5 MG TAB PO SCH ×2 (08:35→20:12)
[2018-05-15] MEDS: Polyethylene Glycol 3350 17 GM Packet PO SCH (20:14)
[2018-05-15] MEDS: Senokot S 8.6-50 MG TAB PO PRN (22:32)
[2018-05-16] MEDS: Levothyroxine Sodium 50 MCG TAB PO SCH (05:04)
[2018-05-16] MEDS: HYDROcodone/Acetaminophen 5/325 mg Tablet PO PRN ×2 (06:53→20:49)
[2018-05-16] MEDS: Aspirin 325 MG TAB PO SCH (08:12)
[2018-05-16] MEDS: Apixaban 5 MG TAB PO SCH ×2 (08:13→20:40)
[2018-05-16] MEDS: Amiodarone 200 MG TAB PO SCH ×2 (08:13→20:40)
[2018-05-16] MEDS: Loratadine 10 MG TAB PO SCH (08:13)
[2018-05-16] MEDS: Furosemide 40 MG TAB PO SCH ×2 (08:13→13:12)
[2018-05-16] MEDS: Carvedilol 6.25 MG TAB PO SCH ×2 (08:13→16:53)
[2018-05-16] MEDS: Senokot S 8.6-50 MG TAB PO PRN ×2 (08:13→20:51)
[2018-05-16] MEDS: Acetaminophen 325 MG TAB PO PRN (09:19)
[2018-05-16] MEDS: Polyethylene Glycol 3350 17 GM Packet PO SCH (20:40)
[2018-05-16] MEDS: Lorazepam 0.5 MG TAB PO PRN (20:49)
[2018-05-17] MEDS: Acetaminophen 325 MG TAB PO PRN (00:15)
[2018-05-17] MEDS: Levothyroxine Sodium 50 MCG TAB PO SCH (05:55)
[2018-05-17] MEDS: Aspirin 325 MG TAB PO SCH (08:23)
[2018-05-17] MEDS: Amiodarone 200 MG TAB PO SCH ×2 (08:23→20:52)
[2018-05-17] MEDS: Carvedilol 6.25 MG TAB PO SCH ×2 (08:24→17:21)
[2018-05-17] MEDS: Loratadine 10 MG TAB PO SCH (08:24)
[2018-05-17] MEDS: Senokot S 8.6-50 MG TAB PO PRN (08:24)
[2018-05-17] MEDS: Furosemide 40 MG TAB PO SCH ×2 (08:24→14:17)
[2018-05-17] MEDS: Apixaban 5 MG TAB PO SCH ×2 (08:24→20:53)
--- NOTE | 2018-05-17 14:38 | RAD ---
CHEST TWO VIEWS: History: Shortness of breath with excursion. Prior bypass, March 2018. Comparison: 05-19-18 FINDINGS: Minimal right hemidiaphragm elevation. Minimal increased linear and interstitial markings noted bilat erally. No confluent pneumonia, overt edema, or pleural effusion. IMPRESSION: Mild bilateral vascular congestion. No confluent pneumonia, overt edema, or pleural effusion. Post un derlying sternotomy. Atherosclerosis of the aorta with ectasia. POS: C
[2018-05-17] MEDS: Senokot 8.6 MG TAB PO SCH (20:53)
[2018-05-17] MEDS: HYDROcodone/Acetaminophen 5/325 mg Tablet PO PRN (20:54)
[2018-05-18] MEDS: HYDROcodone/Acetaminophen 5/325 mg Tablet PO PRN ×2 (01:09→21:28)
[2018-05-18] MEDS: Levothyroxine Sodium 50 MCG TAB PO SCH (05:34)
[2018-05-18] MEDS: Aspirin 325 MG TAB PO SCH (08:24)
[2018-05-18] MEDS: Amiodarone 200 MG TAB PO SCH ×2 (08:24→21:27)
[2018-05-18] MEDS: Polyethylene Glycol 3350 17 GM Packet PO SCH (08:25)
[2018-05-18] MEDS: Senokot 8.6 MG TAB PO SCH ×2 (08:25→21:27)
[2018-05-18] MEDS: Apixaban 5 MG TAB PO SCH ×2 (08:25→21:28)
[2018-05-18] MEDS: Loratadine 10 MG TAB PO SCH (08:25)
[2018-05-18] MEDS: Carvedilol 6.25 MG TAB PO SCH ×2 (08:25→17:19)
[2018-05-18] MEDS: Furosemide 40 MG TAB PO SCH ×2 (08:25→14:27)
[2018-05-19] MEDS: Levothyroxine Sodium 50 MCG TAB PO SCH (05:19)
[2018-05-19] MEDS: Furosemide 40 MG TAB PO SCH ×2 (08:40→14:43)
[2018-05-19] MEDS: Aspirin 325 MG TAB PO SCH (08:40)
[2018-05-19] MEDS: Senokot 8.6 MG TAB PO SCH ×2 (08:40→20:46)
[2018-05-19] MEDS: Carvedilol 6.25 MG TAB PO SCH ×2 (08:40→17:11)
[2018-05-19] MEDS: Amiodarone 200 MG TAB PO SCH ×2 (08:40→20:45)
[2018-05-19] MEDS: Polyethylene Glycol 3350 17 GM Packet PO SCH (08:40)
[2018-05-19] MEDS: Loratadine 10 MG TAB PO SCH (08:40)
[2018-05-19] MEDS: Apixaban 5 MG TAB PO SCH ×2 (08:41→20:46)
[2018-05-19] MEDS: HYDROcodone/Acetaminophen 5/325 mg Tablet PO PRN ×2 (08:43→20:46)
[2018-05-20] MEDS: HYDROcodone/Acetaminophen 5/325 mg Tablet PO PRN (01:46)
[2018-05-20] MEDS: Levothyroxine Sodium 50 MCG TAB PO SCH (05:13)
[2018-05-20] MEDS: Senokot 8.6 MG TAB PO SCH ×2 (08:13→20:21)
[2018-05-20] MEDS: Carvedilol 6.25 MG TAB PO SCH ×2 (08:13→17:13)
[2018-05-20] MEDS: Aspirin 325 MG TAB PO SCH (08:13)
[2018-05-20] MEDS: Apixaban 5 MG TAB PO SCH ×2 (08:13→20:21)
[2018-05-20] MEDS: Loratadine 10 MG TAB PO SCH (08:13)
[2018-05-20] MEDS: Furosemide 40 MG TAB PO SCH ×2 (08:13→14:25)
[2018-05-20] MEDS: Polyethylene Glycol 3350 17 GM Packet PO SCH (08:13)
[2018-05-20] MEDS: Amiodarone 200 MG TAB PO SCH ×2 (08:13→20:21)
[2018-05-20 19:38] VITALS: BMI 37.1
[2018-05-20] MEDS: Acetaminophen 325 MG TAB PO PRN (20:21)
[2018-05-20] MEDS: Lorazepam 0.5 MG TAB PO PRN (20:22)
[2018-05-21] MEDS: HYDROcodone/Acetaminophen 5/325 mg Tablet PO PRN ×3 (01:04→21:16)
[2018-05-21] MEDS: Levothyroxine Sodium 50 MCG TAB PO SCH (05:08)
[2018-05-21] MEDS: Polyethylene Glycol 3350 17 GM Packet PO SCH (08:37)
[2018-05-21] MEDS: Amiodarone 200 MG TAB PO SCH ×2 (08:38→21:13)
[2018-05-21] MEDS: Carvedilol 6.25 MG TAB PO SCH ×2 (08:39→16:42)
[2018-05-21] MEDS: Furosemide 40 MG TAB PO SCH ×2 (08:39→14:33)
[2018-05-21] MEDS: Aspirin 325 MG TAB PO SCH (08:39)
[2018-05-21] MEDS: Loratadine 10 MG TAB PO SCH (08:39)
[2018-05-21] MEDS: Senokot 8.6 MG TAB PO SCH ×2 (08:39→21:10)
[2018-05-21] MEDS: Apixaban 5 MG TAB PO SCH ×2 (08:39→21:11)
[2018-05-21] MEDS ORDERED: Lorazepam 0.5 MG TAB PO PRN (18:01)
[2018-05-21] MEDS: Lorazepam 0.5 MG TAB PO PRN (21:13)
[2018-05-22] MEDS ORDERED: Levothyroxine Sodium 75 MCG TAB PO SCH (07:00)
[2018-05-22 07:08] VITALS: TEMP 98.8
[2018-05-22] MEDS: Carvedilol 6.25 MG TAB PO SCH (08:43)
[2018-05-22] MEDS: Aspirin 325 MG TAB PO SCH (08:43)
[2018-05-22] MEDS: Furosemide 40 MG TAB PO SCH (08:44)
[2018-05-22] MEDS: Senokot 8.6 MG TAB PO SCH (08:44)
[2018-05-22] MEDS: Amiodarone 200 MG TAB PO SCH (08:44)
[2018-05-22] MEDS: Apixaban 5 MG TAB PO SCH (08:44)
[2018-05-22] MEDS: Polyethylene Glycol 3350 17 GM Packet PO SCH (08:44)
[2018-05-22] MEDS: Loratadine 10 MG TAB PO SCH (08:44)
[2018-05-22 12:51] VITALS: BP 127/62
[2018-05-22] MEDS ORDERED: Nitroglycerin 0.4 MG TAB (25 Tab Bottle) SL PRN (14:02)
[2018-05-22] MEDS ORDERED: Apixaban 5 MG TAB PO SCH (21:00)
[2018-05-23] MEDS ORDERED: Polyethylene Glycol 3350 17 GM Packet PO SCH (09:00)
== END 2018-05-22 14:02 | disposition home or self-care (01) | DRG 950 ==
LOC: MADMS 16:49
PROVIDERS: ADMIT Family Medicine; ATTEND Family Medicine
DX: Z48.812 Encounter for surgical aftercare following surgery on the circulatory system (principal); R07.81 Pleurodynia; I25.10 Atherosclerotic heart disease of native coronary artery without angina pectoris; I10 Essential (primary) hypertension; Z66 Do not resuscitate; I48.0 Paroxysmal atrial fibrillation; E03.9 Hypothyroidism, unspecified; F41.9 Anxiety disorder, unspecified; F32.9 Major depressive disorder, single episode, unspecified; G47.00 Insomnia, unspecified; Z95.1 Presence of aortocoronary bypass graft; Z95.4 Presence of other heart-valve replacement
CPT/HCPCS: 71046

== ENCOUNTER 2018-06-26 11:34 | Emergency (ER) | payer MEDICARE, MEDICAID ==
[2018-06-26] MEDS ORDERED: Aspirin Chewable 81 MG TAB ONE (12:04)
[2018-06-26] MEDS ORDERED: Nitroglycerin 2% Ointment 1 INCH/1 GM Packet ONE (12:04)
[2018-06-26 12:16] LABS: #Basophils 0.1 thou/uL (0.0-0.2); #Eosinphils 0.3 thou/uL (0.0-0.7); #Lymphocytes 1.3 thou/uL (1.20-3.40); #Monocytes 0.5 thou/uL (0.11-0.59); #Neutrophils 5.6 thou/uL (1.40-6.50); %Basophils 1.1 % (0.0-1.0); %Eosinophils 4.3 % (0.0-10.0); %Lymphocytes 16.8 % (21.0-51.0); %Monocytes 6.7 % (0.0-10.0); %Neutrophils 71.1 % (42.0-75.0); Anisocytosis SLIGHT = 6-15 cells (100X) (0-5/hpf); Hemoglobin 12.3 g/dL (12.0-16.0); Mean Corpuscular HGB CONC 30.6 g/dL (32.0-36.0); Mean Corpuscular Hemoglobin 24.6 pg (27.0-31.0); Mean Corpuscular Volume 80.4 fL (78.0-98.0); Platelet Count 280 thou/uL (130-400); RBC Distribution Width 14.4 % (11.5-14.5); Red Blood Cell (RBC) Count 4.99 mill/uL (4.20-5.40); White Blood Cell (WBC) Count 7.9 thou/uL (4.8-10.8)
--- NOTE | 2018-06-26 12:18 | RAD ---
AP VIEW CHEST: Date: 06/26/18 HISTORY: Chest pain status post CABG. FINDINGS: Comparison made to previous exam from 04/29/18. AP view of chest obtained. Sternotomy wires seen. No evidence of effusions, pneumonia, or pneumothora x seen. IMPRESSION: Unremarkable AP view of chest. POS: [facility]
[2018-06-26 12:25] LABS: ALT (SGPT) 23 U/L (8-55); AST (SGOT) 19 U/L (5-34); Albumin 4.1 g/dL (3.4-4.8); Alkaline Phosphatase 72 U/L (40-150); Anion Gap 16 mmol/L (10-20); BUN (Urea Nitrogen) 19 mg/dL (9.8-20.1); Bilirubin, Total 0.3 mg/dL (0.2-1.2); Calc. Creatinine Clearance 0 mL/min (70-130); Calcium 9.3 mg/dL (7.8-10.44); Carbon Dioxide 24 mmol/L (23-31); Chloride 104 mmol/L (98-107); Estimated GFR-MDRD 42; Globulin 3.2 g/dL (2.4-3.5); Glucose 102 mg/dL (83-110); Protein, Total 7.3 g/dL (6.0-8.3); Sodium 141 mmol/L (136-145)
[2018-06-26 12:45] LABS: Potassium 2.9 mmol/L (3.5-5.1)
[2018-06-26] MEDS ORDERED: Potassium Chloride 10 MEQ TAB ONE (12:48)
== END 2018-06-26 14:57 | disposition short-term general hospital (02) ==
LOC: MADERS 11:34
DX: G89.18 Other acute postprocedural pain (principal); R07.9 Chest pain, unspecified; I10 Essential (primary) hypertension; E03.9 Hypothyroidism, unspecified; F41.9 Anxiety disorder, unspecified; F32.9 Major depressive disorder, single episode, unspecified; Z86.73 Personal history of transient ischemic attack (TIA), and cerebral infarction without residual deficits; Z87.891 Personal history of nicotine dependence; Z79.82 Long term (current) use of aspirin; Z79.899 Other long term (current) drug therapy
CPT/HCPCS: 71045; 80053; 83880; 84484; 85025; 93005

== ENCOUNTER 2018-08-11 17:36 | Emergency (ER) | payer MEDICARE, MEDICAID ==
--- NOTE | 2018-08-11 18:10 | RAD ---
Chest one view HISTORY: Chest pain. COMPARISON: 06/26/2018. FINDINGS: Cardiac silhouette is magnified by projection. Pulmonary vasculature is slightly engorged a nd accentuated by shallow inspiration. Mediastinum is midline with postoperative changes. Electronic device overlies the left lateral chest wall. Retrocardiac density has the appearance of a hiatal hernia. No evidence of pneumothorax. IMPRESSION: Borderline pulmonary vascular congestion. No florid edema is evident. Hiatal hernia.
[2018-08-11 18:25] LABS: #Basophils 0.1 thou/uL (0.0-0.2); #Eosinphils 0.3 thou/uL (0.0-0.7); #Lymphocytes 1.2 thou/uL (1.20-3.40); #Monocytes 0.5 thou/uL (0.11-0.59); #Neutrophils 4.7 thou/uL (1.40-6.50); %Basophils 1.1 % (0.0-1.0); %Eosinophils 5.1 % (0.0-10.0); %Lymphocytes 16.9 % (21.0-51.0); %Monocytes 7.2 % (0.0-10.0); %Neutrophils 69.7 % (42.0-75.0); Hemoglobin 11.6 g/dL (12.0-16.0); Mean Corpuscular HGB CONC 31.5 g/dL (32.0-36.0); Mean Corpuscular Hemoglobin 24.6 pg (27.0-31.0); Mean Corpuscular Volume 78.1 fL (78.0-98.0); Mean Platelet Volume 7.4 fL (7.4-10.4); Platelet Count 235 thou/uL (130-400); RBC Distribution Width 15.1 % (11.5-14.5); Red Blood Cell (RBC) Count 4.72 mill/uL (4.20-5.40); White Blood Cell (WBC) Count 6.8 thou/uL (4.8-10.8)
[2018-08-11 18:39] LABS: Polychromasia SLIGHT = 2-3 cells (100X) (0-2/hpf)
[2018-08-11 18:44] LABS: ALT (SGPT) 13 U/L (8-55); AST (SGOT) 14 U/L (5-34); Albumin 3.8 g/dL (3.4-4.8); Alkaline Phosphatase 72 U/L (40-150); Anion Gap 17 mmol/L (10-20); BUN (Urea Nitrogen) 20 mg/dL (9.8-20.1); Bilirubin, Total 0.3 mg/dL (0.2-1.2); Calc. Creatinine Clearance 0 mL/min (70-130); Calcium 9.3 mg/dL (7.8-10.44); Carbon Dioxide 16 mmol/L (23-31); Chloride 112 mmol/L (98-107); Estimated GFR-MDRD 52; Globulin 3.1 g/dL (2.4-3.5); Glucose 86 mg/dL (83-110); Potassium 3.7 mmol/L (3.5-5.1); Protein, Total 6.9 g/dL (6.0-8.3); Sodium 141 mmol/L (136-145)
[2018-08-11] MEDS ORDERED: Nitroglycerin 2% Ointment 1 INCH/1 GM Packet ONE (19:12)
[2018-08-11] MEDS ORDERED: Acetaminophen 500 MG TAB ONE (19:21)
== END 2018-08-11 19:34 | disposition short-term general hospital (02) ==
LOC: MADERS 17:36
DX: I25.10 Atherosclerotic heart disease of native coronary artery without angina pectoris (principal); F41.9 Anxiety disorder, unspecified; F32.9 Major depressive disorder, single episode, unspecified; I10 Essential (primary) hypertension; E03.9 Hypothyroidism, unspecified; Z79.899 Other long term (current) drug therapy; Z86.73 Personal history of transient ischemic attack (TIA), and cerebral infarction without residual deficits; Z79.891 Long term (current) use of opiate analgesic; Z79.82 Long term (current) use of aspirin
CPT/HCPCS: 36415; 71045; 80053; 83880; 84484; 85025; 85379; 93005

== ENCOUNTER 2018-10-15 05:42 | Emergency (ER) | payer MEDICARE, OTHER ==
[2018-10-15] MEDS ORDERED: Fleet Enema 133 ML BOT ONE (06:03)
== END 2018-10-15 06:35 | disposition home or self-care (01) ==
LOC: MADERS 05:42
DX: K56.41 Fecal impaction (principal); I10 Essential (primary) hypertension; E03.9 Hypothyroidism, unspecified; F41.9 Anxiety disorder, unspecified; F32.9 Major depressive disorder, single episode, unspecified; Z86.73 Personal history of transient ischemic attack (TIA), and cerebral infarction without residual deficits; Z87.891 Personal history of nicotine dependence; Z79.01 Long term (current) use of anticoagulants; Z79.899 Other long term (current) drug therapy

== ENCOUNTER 2018-11-02 10:21 | Emergency (ER) | payer MEDICARE, MEDICAID ==
[~2018-11-02 10:21] MED LIST: Iopamidol 370 76% 100 ML VIAL ONE
[2018-11-02] MEDS ORDERED: Clindamycin/D5W 600 mg/50 ml Premix Bag ONE (11:05)
[2018-11-02 11:35] LABS: #Basophils 0.1 thou/uL (0.0-0.2); #Eosinphils 0.3 thou/uL (0.0-0.7); #Monocytes 0.7 thou/uL (0.11-0.59); #Neutrophils 9.6 thou/uL (1.40-6.50); %Basophils 0.9 % (0.0-1.0); %Eosinophils 2.9 % (0.0-10.0); %Lymphocytes 8.2 % (21.0-51.0); %Monocytes 5.6 % (0.0-10.0); %Neutrophils 82.5 % (42.0-75.0); Hemoglobin 12.2 g/dL (12.0-16.0); Mean Corpuscular HGB CONC 30.9 g/dL (32.0-36.0); Mean Corpuscular Volume 77.6 fL (78.0-98.0); Mean Platelet Volume 6.8 fL (7.4-10.4); Platelet Count 303 thou/uL (130-400); RBC Distribution Width 14.7 % (11.5-14.5); Red Blood Cell (RBC) Count 5.07 mill/uL (4.20-5.40); White Blood Cell (WBC) Count 11.7 thou/uL (4.8-10.8)
[2018-11-02 11:44] LABS: Anion Gap 16 mmol/L (10-20); BUN (Urea Nitrogen) 20 mg/dL (9.8-20.1); Calc. Creatinine Clearance 0 mL/min (70-130); Calcium 9.1 mg/dL (7.8-10.44); Carbon Dioxide 21 mmol/L (23-31); Chloride 106 mmol/L (98-107); Estimated GFR-MDRD 49; Glucose 112 mg/dL (83-110); Potassium 4.4 mmol/L (3.5-5.1); Sodium 139 mmol/L (136-145)
[2018-11-02] MEDS ORDERED: Fentanyl 100 MCG/2 ML VIAL ONE (12:29)
--- NOTE | 2018-11-02 14:18 | CT ---
EXAM: CT Facial Bones W Con PROVIDED CLINICAL HISTORY: Left facial swelling. Warmness to touch. Pressure upper teeth. COMPARISON: None FINDINGS: There is mild subcutaneous soft tissue swelling seen involving the facial soft tissues laterally and anterolaterally adjacent to the region of the mandible as well as just anterior lateral to the lower portion of the left zygomatic bone. There is mild thickening involving the platysma muscle in t his region. Inflammatory stranding is greatest adjacent to the left mandible. There is prominent streak artifact in this region secondary to dental amalgam involving left mandibular molars, but no o bvious fluid collection is appreciated to suggest an abscess in this region. However, fluid collection is difficult to entirely exclude given the amount of artifact. There is a minimal periapical lucencies involving a proximal left maxillary molar. Minimal mucosal thickening is seen in the left maxillary antrum. The visualized paranasal sinuses as well as mastoid air cells are clear. Orbits are normal and symmetric in appearance bilaterally. Mild degenerative changes in the spine. Vascular calcifications are seen in the carotid arteries. IMPRESSION: Inflammatory stranding left facial soft tissues greatest at the level of the mandible with associated thickening of the platysma muscle. There is prominent streak artifact secondary to dental amalgam involving left mandibular molars. This does limit evaluation, but no obvious fluid collection is appr eciated to suggest abscess. Findings are likely related to infectious or inflammatory process.
== END 2018-11-02 14:57 | disposition home or self-care (01) ==
LOC: MADERS 10:21
DX: L03.211 Cellulitis of face (principal); K02.9 Dental caries, unspecified; I10 Essential (primary) hypertension; E03.9 Hypothyroidism, unspecified; F41.9 Anxiety disorder, unspecified; F32.9 Major depressive disorder, single episode, unspecified; Z87.891 Personal history of nicotine dependence; Z86.73 Personal history of transient ischemic attack (TIA), and cerebral infarction without residual deficits; Z79.82 Long term (current) use of aspirin; Z79.01 Long term (current) use of anticoagulants; Z79.899 Other long term (current) drug therapy
CPT/HCPCS: 36415; 70487; 80048; 85025; 87040; 87149; 96365; 96375; J3010; J3490; Q9967

== ENCOUNTER 2019-01-23 11:54 | Outpatient (CLI) | payer MEDICARE, MEDICAID ==
[2019-01-23 12:35] LABS: ALT (SGPT) 20 U/L (8-55); AST (SGOT) 19 U/L (5-34); Albumin 4.2 g/dL (3.4-4.8); Alkaline Phosphatase 113 U/L (40-110); Anion Gap 16 mmol/L (10-20); BUN (Urea Nitrogen) 22 mg/dL (9.8-20.1); Bilirubin, Total 0.5 mg/dL (0.2-1.2); Calc. Creatinine Clearance 0 mL/min (70-130); Calcium 9.5 mg/dL (7.8-10.44); Carbon Dioxide 22 mmol/L (23-31); Cardiac Risk 6.2 (Less than 4.5); Chloride 107 mmol/L (98-107); Cholesterol 229 mg/dl (< 200 Desired); Estimated GFR-MDRD 43; Globulin 2.6 g/dL (2.4-3.5); Glucose 102 mg/dL (83-110); HDL Cholesterol 37 mg/dL (>60 Neg Risk); LDL Cholesterol, Calculated 166 mg/dL; Potassium 4.6 mmol/L (3.5-5.1); Protein, Total 6.8 g/dL (6.0-8.3); Sodium 140 mmol/L (136-145); Triglycerides 131 mg/dL (Less than 150)
[2019-01-23 12:48] LABS: #Basophils 0.1 thou/uL (0.0-0.2); #Eosinphils 0.3 thou/uL (0.0-0.7); #Lymphocytes 0.9 thou/uL (1.20-3.40); #Monocytes 0.3 thou/uL (0.11-0.59); %Basophils 1.6 % (0.0-1.0); %Eosinophils 5.4 % (0.0-10.0); %Lymphocytes 15.7 % (21.0-51.0); %Monocytes 5.3 % (0.0-10.0); %Neutrophils 71.9 % (42.0-75.0); Hemoglobin 12.5 g/dL (12.0-16.0); MDiff Complete? YES; Mean Corpuscular HGB CONC 31.2 g/dL (32.0-36.0); Mean Corpuscular Hemoglobin 24.8 pg (27.0-31.0); Mean Corpuscular Volume 79.4 fL (78.0-98.0); Microcytosis SLIGHT = 6-15 cells (100X) (0-5/hpf); Platelet Count 233 thou/uL (130-400); Platelet Morphology Comment Appears Adequate; RBC Distribution Width 14.8 % (11.5-14.5); Red Blood Cell (RBC) Count 5.05 mill/uL (4.20-5.40); White Blood Cell (WBC) Count 5.6 thou/uL (4.8-10.8)
[2019-01-23 17:27] LABS: Iron 40 ug/dL (50-170); Iron Binding Capacity, Total 376 mcg/dL (265-497)
== END 2019-01-23 11:55 | disposition home or self-care (01) ==
LOC: MADLAB 11:54
PROVIDERS: ATTEND Nurse Practitioner Family
DX: E03.9 Hypothyroidism, unspecified (principal); I10 Essential (primary) hypertension; D64.9 Anemia, unspecified; E66.9 Obesity, unspecified; Z95.0 Presence of cardiac pacemaker; Z95.4 Presence of other heart-valve replacement
CPT/HCPCS: 36415; 80053; 80061; 82746; 83540; 83550; 84443; 85025

== ENCOUNTER 2019-05-14 14:58 | Outpatient (CLI) | payer MEDICARE, MEDICAID ==
[2019-05-14 15:36] LABS: ALT (SGPT) 14 U/L (8-55); AST (SGOT) 12 U/L (5-34); Albumin 3.7 g/dL (3.4-4.8); Alkaline Phosphatase 66 U/L (40-110); Anion Gap 16 mmol/L (10-20); BUN (Urea Nitrogen) 21 mg/dL (9.8-20.1); Bilirubin, Total 0.3 mg/dL (0.2-1.2); Calc. Creatinine Clearance 0 mL/min (70-130); Calcium 8.8 mg/dL (7.8-10.44); Carbon Dioxide 21 mmol/L (23-31); Chloride 110 mmol/L (98-107); Estimated GFR-MDRD 52; Globulin 2.6 g/dL (2.4-3.5); Glucose 106 mg/dL (83-110); Potassium 3.9 mmol/L (3.5-5.1); Protein, Total 6.3 g/dL (6.0-8.3); Sodium 143 mmol/L (136-145)
== END 2019-05-14 14:59 | disposition home or self-care (01) ==
LOC: MADLAB 14:58
PROVIDERS: ATTEND Nurse Practitioner Family
DX: I25.10 Atherosclerotic heart disease of native coronary artery without angina pectoris (principal); I10 Essential (primary) hypertension
CPT/HCPCS: 80053

== ENCOUNTER 2019-09-16 14:44 | Outpatient (CLI) | payer MEDICARE, MEDICAID ==
[2019-09-16 15:13] LABS: ALT (SGPT) 14 U/L (8-55); AST (SGOT) 14 U/L (5-34); Albumin 3.8 g/dL (3.4-4.8); Alkaline Phosphatase 69 U/L (40-110); Anion Gap 17 mmol/L (10-20); BUN (Urea Nitrogen) 16 mg/dL (9.8-20.1); Bilirubin, Total 0.4 mg/dL (0.2-1.2); Calc. Creatinine Clearance 0 mL/min (70-130); Calcium 8.9 mg/dL (7.8-10.44); Carbon Dioxide 20 mmol/L (23-31); Chloride 108 mmol/L (98-107); Estimated GFR-MDRD 65; Globulin 2.5 g/dL (2.4-3.5); Glucose 86 mg/dL (83-110); Potassium 4.2 mmol/L (3.5-5.1); Protein, Total 6.3 g/dL (6.0-8.3); Sodium 141 mmol/L (136-145)
== END 2019-09-16 14:45 | disposition home or self-care (01) ==
LOC: MADLAB 14:44
PROVIDERS: ATTEND Nurse Practitioner Family
DX: I25.10 Atherosclerotic heart disease of native coronary artery without angina pectoris (principal); I10 Essential (primary) hypertension
CPT/HCPCS: 80053

== ENCOUNTER 2020-11-02 21:31 | Emergency (ER) | payer MEDICARE, MEDICAID ==
[~2020-11-02 21:31] MED LIST changes: -Iopamidol 370 76% 100 ML VIAL ONE; +Iopamidol 370 76% 125 ML VIAL FS ONE; +Sodium Chloride 0.9% 100 ML BAG ONE
[2020-11-02 22:42] LABS: #Basophils 0.1 thou/uL (0.0-0.2); #Eosinphils 0.6 thou/uL (0.0-0.7); #Monocytes 0.5 thou/uL (0.11-0.59); %Eosinophils 8.1 % (0.0-10.0); %Lymphocytes 13.4 % (21.0-51.0); %Monocytes 6.6 % (0.0-10.0); %Neutrophils 70.8 % (42.0-75.0); Hemoglobin 11.3 g/dL (12.0-16.0); Mean Corpuscular HGB CONC 30.5 g/dL (32.0-36.0); Mean Corpuscular Hemoglobin 24.9 pg (27.0-31.0); Mean Corpuscular Volume 81.6 fL (78.0-98.0); Mean Platelet Volume 8.8 fL (7.4-10.4); Platelet Count 246 thou/uL (130-400); RBC Distribution Width 15.4 % (11.5-14.5); Red Blood Cell (RBC) Count 4.56 mill/uL (4.20-5.40); White Blood Cell (WBC) Count 7.1 thou/uL (4.8-10.8)
[2020-11-02 22:43] LABS: Platelet Morphology Comment Appears Adequate; RBC Morphology Normal
[2020-11-02 22:50] LABS: ALT (SGPT) 16 U/L (8-55); AST (SGOT) 18 U/L (5-34); Albumin 3.7 g/dL (3.4-4.8); Alkaline Phosphatase 75 U/L (40-110); Anion Gap 14 mmol/L (10-20); BUN (Urea Nitrogen) 24 mg/dL (9.8-20.1); Bilirubin, Total 0.5 mg/dL (0.2-1.2); CK (CPK) 23 U/L (29-168); Calc. Creatinine Clearance 0 mL/min (70-130); Calcium 9.1 mg/dL (7.8-10.44); Carbon Dioxide 25 mmol/L (23-31); Chloride 105 mmol/L (98-107); Globulin 3.2 g/dL (2.4-3.5); Glucose 96 mg/dL (83-110); Potassium 4.4 mmol/L (3.5-5.1); Protein, Total 6.9 g/dL (5.8-8.1); Sodium 140 mmol/L (136-145)
[2020-11-02 22:51] LABS: CKMB 0.9 ng/mL (0-6.6)
== END 2020-11-03 02:42 | disposition short-term general hospital (02) ==
LOC: MADERS 21:31
DX: I25.110 Atherosclerotic heart disease of native coronary artery with unstable angina pectoris (principal); N13.2 Hydronephrosis with renal and ureteral calculous obstruction; I69.320 Aphasia following cerebral infarction; R06.2 Wheezing; R26.9 Unspecified abnormalities of gait and mobility; R14.0 Abdominal distension (gaseous); R29.725 NIHSS score 25; I48.91 Unspecified atrial fibrillation; E66.9 Obesity, unspecified; M48.00 Spinal stenosis, site unspecified; E03.9 Hypothyroidism, unspecified; I10 Essential (primary) hypertension; Z87.891 Personal history of nicotine dependence; Z79.01 Long term (current) use of anticoagulants; Z79.899 Other long term (current) drug therapy
CPT/HCPCS: 36415; 71045; 71275; 74177; 80053; 82550; 82553; 83880; 84484; 85025; 85379; 93005; J3490; Q9967

== ENCOUNTER 2023-06-06 19:30 | Emergency (ER) | payer MEDICARE, MEDICAID | END 2023-06-07 01:06 | LOC: MADERS 19:30 | DX: K94.23 Gastrostomy malfunction (principal); I48.91 Unspecified atrial fibrillation; I25.10 Atherosclerotic heart disease of native coronary artery without angina pectoris; I12.9 Hypertensive chronic kidney disease with stage 1 through stage 4 chronic kidney disease, or unspecified chronic kidney disease; N18.30 Chronic kidney disease, stage 3 unspecified; E03.9 Hypothyroidism, unspecified; Z86.73 Personal history of transient ischemic attack (TIA), and cerebral infarction without residual deficits; Z95.1 Presence of aortocoronary bypass graft; Z87.891 Personal history of nicotine dependence; Z79.899 Other long term (current) drug therapy | CPT/HCPCS: 74019 ==

== ENCOUNTER 2023-10-27 17:18 | Emergency (ER) | payer MEDICARE, MEDICAID | END 2023-10-27 18:35 | LOC: MADERS 17:18 | DX: K94.23 Gastrostomy malfunction (principal); E03.9 Hypothyroidism, unspecified; I25.10 Atherosclerotic heart disease of native coronary artery without angina pectoris; K21.9 Gastro-esophageal reflux disease without esophagitis; I12.9 Hypertensive chronic kidney disease with stage 1 through stage 4 chronic kidney disease, or unspecified chronic kidney disease; N18.30 Chronic kidney disease, stage 3 unspecified; Z86.73 Personal history of transient ischemic attack (TIA), and cerebral infarction without residual deficits; Z95.1 Presence of aortocoronary bypass graft; Z87.891 Personal history of nicotine dependence | CPT/HCPCS: 43762; 74018; 74176 ==